=== PATIENT | male | born 1975 | race Caucasian/White ===

== ENCOUNTER 2017-03-11 11:20 | Emergency (ER) | payer OTHER ==
[~2017-03-11] VITALS: Ht 188 cm; Wt 86.2 kg
[~2017-03-11 11:20] MED LIST: CLARITIN10 M1 PO; EPIPEN 2-P0.3 MG/0.3 IM; MULTI-DAY VITA1 EACH PO; PERCOCET 5-3251 EACH PO; VIAGRA100 M1 PO
[2017-03-11 11:31] VITALS: BP 155/82
--- NOTE | 2017-03-11 11:35 | ED GI/GU/ABDOMINAL COMPLAINT ---
History of Present Illness General Chief Complaint: Male Genitourinary Problems Stated Complaint: HERNIA? Source: patient Exam Limitations: no limitations Vital Signs & Intake/Output Vital Signs & Intake/Output Vital Signs Date Time Temp Pulse Resp B/P B/P Pulse O2 O2 Flow FiO2 Mean Ox Delivery Rate 03/11 1131 98.2 80 15 155/82 96 Room Air Room Air Allergies Coded Allergies: amoxicillin (From Amoxil) (RASH 03/11/17) pine nut (ANAPHYLAXIS 03/11/17) Reconcile Medications Epinephrine (Epipen 2-Luc) 0.3 MG/0.3 ML AUTO.INJCT 0.3 MG IM AD PRN ALLERGIC REACTION (Reported) Loratadine (Claritin) 10 MG TABLET 1 TAB PO DAILY PRN ALLERGY (Reported) Multivitamin (Multi-Day Vitamins) 1 EACH TABLET 1 TAB PO DAILY SUPPLEMENT ( Reported) Triage Note: PT TO ED FOR C/C OF ?HERNIA. PT NOTICED A LUMP TO L INGUINAL AREA SATURDAY AND NOW LOCATION HAS SHIFTED. REPORTS BURNING WITH URINATION SATURDAY. Triage Nurses Notes Reviewed? yes HPI: 41 yo M presenting with left groin pain. Left groin pain for the last 2-3 days since working out on Saturday, worse with movement of left thigh, patient initially had some swelling in left inguinal/thigh region that has since resolved. 1-2 days of dysuria last week, resolved. Ongoing pain, patient concerned for hernia prompting presentation to the ED. Denies fevers, chills, chest pain, palpitations, SOB, Abdominal pain, N/V/D/C, bloody stools, obstipation, testicular pain, penile drainage, focal neurologic Sx. (CAROLINA PASCUAL,ALEXANDRU) Past History Travel History Traveled to [place] past 21 day No Medical History Any Pertinent Medical History? 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 Yes (ALEXANDRU FIGUEROA MD) Review of Systems Review of Systems Constitutional: Reports: no symptoms. EENTM: Reports: no symptoms. Respiratory: Reports: no symptoms. Cardiovascular: Reports: no symptoms. GI: Reports: no symptoms. Genitourinary: Reports: dysuria. Musculoskeletal: Reports: muscle pain. Skin: Reports: no symptoms. Neurological/Psychological: Reports: no symptoms. Hematologic/Endocrine: Reports: no symptoms. Immunologic/Allergic: Reports: no symptoms. All Other Systems: Reviewed and Negative (ALEXANDRU FIGUEROA MD) Physical Exam Physical Exam General Appearance: well developed/nourished, no apparent distress, alert, awake Head: atraumatic, normal appearance Ears, Nose, Throat, Mouth: moist mucous membrane Neck: normal inspection, full range of motion Respiratory: normal breath sounds, no respiratory distress, lungs clear Cardiovascular: regular rate/rhythm, normal peripheral pulses Gastrointestinal: normal bowel sounds, soft, non-tender Male Genitals: normal genitalia Comments: Abdomen: Soft, normal bowel sounds, nontender palpation throughout, notably no tenderness with deep palpation in the left lower quadrant Male : Symmetric bilaterally distended testicles with normal lie and no tenderness to palpation bilaterally, no hernias appreciated on either side with Valsalva maneuver, no testicular or left inguinal masses palpated MSK: Tenderness to palptaion over left medial thigh adductor muscles, pain with active abduction of left leg against resistance, full range of motion of left hip joint without pain, 2+ DP pulses bilaterally, no motor or sensory deficits. Core Measures ACS in differential dx? No Severe Sepsis Present: No Septic Shock Present: No (ALEXANDRU FIGUEROA MD) Progress Differential Diagnosis: AAA, AMI, appendicitis, biliary colic, bowel obstruction , colon cancer, cholecystitis, diverticulitis, epididymitis, esophageal varices, gastritis, hepatitis, hernia, hemorrhoids, ischemic bowel, inflamm bowel dis, Karolina-Leticia tear, orchitis, pancreatitis, prostatitis, peptic ulcer, PUD/GERD, perforated viscous, pyelonephritis, SBO, STD, testicular torsion, ureterolithiasis, urinary retention, urethritis, UTI/pyelo Plan of Care: Orders Procedure Date/time Status CULTURE,URINE 03/11 1135 Active URINALYSIS 03/11 1135 Complete Laboratory Tests 03/11/17 1138: Urine Color YEL, Urine Clarity CLEAR, Urine pH 6.0, Ur Specific [place] <= 1.005 , Urine Protein NEG, Urine Ketones NEG, Urine Nitrite NEG, Urine Bilirubin NEG, Urine Urobilinogen 0.2, Ur Leukocyte Esterase NEG, Ur Microscopic EXAM NOT REQUIRED, Urine Hemoglobin NEG, Urine Glucose NEG Microbiology 03/11 1138 URINE ROUT: Urine Culture - RECD Physician MDM: 41 yo M presenting with left inguinal pain 3-4 days. VSS, male muscle skeletal exam as above, abdominal exam benign. DDx: Muscle strain, low concern for hernia or other surgical abdominal pathology. Given no evidence of masses or hernias on exam, will hold abdomen and pelvis CT at this time. Concerning symptoms associated with hernias discussed with patient, given return precautions for any of the symptoms. Given ibuprofen with improvement and left inguinal pain with thigh movements. Discharged with return precautions, plan to follow up with PMD in the next 2-3 days for further evaluation. (CAROLINA PASCUAL,ALEXANDRU) Initial ED EKG: none (CAROLINA PASCUAL,ALEXANDRU) Departure Departure Disposition: HOME OR SELF CARE Condition: Stable Clinical Impression Primary Impression: Left groin pain Referrals: [facility] Additional Instructions: Take Tylenol or ibuprofen as needed for pain. Follow-up with your primary care physician or return to the emergency department for further evaluation if pain has not resolved within 7 days. Returns the emergency department for any new, worsening, or concerning symptoms. Departure Forms: Customer Survey General Discharge Information (CAROLINA PASCUAL,ALEXANDRU) Resident Co-Sign Statement Statement: ED Attending supervision documentation- [] I saw and evaluated the patient. I have also reviewed all the pertinent lab results and diagnostic results. I agree with the findings and the plan of care as documented in the Resident's documentation. [X] I have reviewed the ED Record and agree with the Resident's documentation. [] Additions or exceptions (if any) to the Resident's note and plan are summarized below: [] (SHAE PASCUAL,MICHAEL)
== END 2017-03-11 12:50 ==
LOC: ERH 11:20
DX: R10.32 Left lower quadrant pain (principal)
CPT/HCPCS: 81003; 87086